=== PATIENT | female | born 1965 | race Caucasian/White ===

== ENCOUNTER 2018-04-05 05:54 | Emergency (ER) | payer OTHER ==
[2018-04-05 05:59] VITALS: BP 162/87
--- NOTE | 2018-04-05 06:11 | EDPHY ---
H & P Stated Complaint: SOB, anxiety Time Seen by Provider: 04/05/18 05:59 HPI/ROS: Chief Complaint: Shortness of breath HPI: 52-year-old woman woke from sleep feeling short of breath with some tightness in her chest. Patient states that she was dreaming that she was not able to breathe. When she awoke she continued to feel short of breath and started rubbing her chest. She has some tightness in her upper chest. She is also feeling very anxious. Symptoms have since resolved. She did take a Xanax about 50 min ago. She has had similar episodes in the past was diagnosed with a panic attack. No leg pain or swelling. Does not hurt to breathe. She is currently not complaining of shortness of breath. No cough. No fevers or chills. No risk factors for coronary artery disease. She is not a smoker. ROS: 10 systems were reviewed and were negative except those elements noted in the HPI. PMH: Hypothyroidism Social History: No smoking, occasional alcohol, no recreational drug use Family History: non-contributory Physical Exam: Gen: Awake, Alert, No Distress HEENT: Nose: no rhinorrhea Eyes: PERRLA, EOMI Mouth: Moist mucosa Neck: Supple, no JVD Chest: nontender, lungs clear to auscultation Heart: S1, S2 normal, no murmur Abd: Soft, non-tender, no guarding Back: no CVA tenderness, no midline tenderness Ext: no edema, non-tender Skin: no rash Neuro: CN II-XII intact, Sensation grossly intact, Strength 5/5 in bilateral upper and lower extremities - Personal History LMP (Females 10-55): Post Menopausal Current Tetanus/Diphtheria Vaccine: Yes Current Tetanus Diphtheria and Acellular Pertussis (TDAP): Yes - Medical/Surgical History Hx Asthma: No Hx Chronic Respiratory Disease: No Hx Diabetes: No Hx Cardiac Disease: No Hx Renal Disease: No Hx Cirrhosis: No Hx Alcoholism: No Hx HIV/AIDS: No Hx Splenectomy or Spleen Trauma: No Other PMH: anxiety - Social History Smoking Status: Never smoked Constitutional: Initial Vital Signs Temperature (C) 36.6 C 04/05/18 05:56 Heart Rate 71 04/05/18 05:56 Respiratory Rate 18 04/05/18 05:56 Blood Pressure 162/87 H 04/05/18 05:56 O2 Sat (%) 95 04/05/18 05:56 O2 Delivery Mode Room Air Allergies/Adverse Reactions: No Known Allergies Allergy (Unverified 04/05/18 05:56) Home Medications: Medication Instructions Recorded Denis Thyroid 04/05/18 Medical Decision Making - Diagnostics EKG Interpretation: ECG time 6:17 a.m., sinus rhythm with a rate of 60, normal axis, nonspecific intraventricular conduction delay, no acute ST or T-wave changes. ED Course/Re-evaluation: Patient woke from a dream in which she could not breathe. Upon awaking she felt short of breath with some tightness in her chest. This rapidly resolved. She has a normal exam here. She has no risk factors for coronary artery disease or PE. Her ECG is unremarkable. At think her symptoms occurred because of her drain. Not see any evidence acute cardio respiratory process at this time. She has been reassured. Will discharge her with follow up with primary care physician, return for any concerns. Departure - Departure Disposition: Home, Routine, Self-Care Clinical Impression: Dyspnea Condition: Good Instructions: Dyspnea (ED) Additional Instructions: Return to the emergency department for increasing shortness of breath, cough, fevers, chills, chest pain, or any other concerns. Follow up with primary care physician in 2-3 days for further evaluation. Referrals: Brisa Martínez MD [[facility] Primary Care Provider] - As per Instructions
--- NOTE | 2018-04-05 07:06 | CPEKG ---
Test Reason : OPEN Blood Pressure : / mmHG Vent. Rate : 060 BPM Atrial Rate : 061 BPM P-R Int : 193 ms QRS Dur : 127 ms QT Int : 444 ms P-R-T Axes : 048 -03 033 degrees QTc Int : 444 ms Sinus rhythm Nonspecific intraventricular conduction delay Confirmed by Kemal Sharma ([id number]) on 04/05/2018 7:05:25 AM Referred By: Confirmed By:Kemal Sharma
== END 2018-04-05 06:54 | disposition home or self-care (01) ==
DX: R06.02 Shortness of breath (principal)